=== PATIENT | male | born 1975 | race Caucasian/White ===

== ENCOUNTER 2021-06-27 18:25 | Emergency (ER) | payer OTHER ==
[~2021-06-27] VITALS: Ht 175.3 cm; Wt 79.4 kg
[2021-06-27] MEDS ORDERED: METFORMIN HCL500 M3 PO (18:41)
[2021-06-27] MEDS ORDERED: PROAIR HFA8.5 GM INH (18:41)
[2021-06-27] MEDS ORDERED: HUMALOG100 UNIT/1 SUBQ (18:41)
[2021-06-27] MEDS ORDERED: BREO ELLIPTA 11 EACH INH (18:41)
[2021-06-27] MEDS ORDERED: POLYMYXIN B/TMP10 ML INTRAOCULR (19:12)
[2021-06-27 19:21] VITALS: BP 160/98
== END 2021-06-27 19:22 | disposition home or self-care (01) ==
LOC: M.ERS 18:25
DX: S05.01XA Injury of conjunctiva and corneal abrasion without foreign body, right eye, initial encounter (principal); E11.9 Type 2 diabetes mellitus without complications; Z79.4 Long term (current) use of insulin; Z79.899 Other long term (current) drug therapy; X58.XXXA Exposure to other specified factors, initial encounter; Y93.89 Activity, other specified; Y92.89 Other specified places as the place of occurrence of the external cause; Y99.8 Other external cause status